=== PATIENT | female | born 1955 | race Caucasian/White ===

== ENCOUNTER 2016-11-08 10:56 | Outpatient (RCR) | payer OTHER ==
--- NOTE | 2016-11-09 15:23 | PT/OT/ST INITIAL EVALUATION ---
Department of Health and Human Services Form Approved Health Care Financing Administration OMB No. [id number] PLAN OF CARE/ASSESSMENT FOR OUTPATIENT REHABILITATION (Complete for Initial Claims Only) 1. PATIENT'S NAME Sharda Horner 2. ACC # [id number] 3. HICN NA 4. PROVIDER NO. [id number] 5. TYPE: PT 6. PRIOR HOSPITALIZATION NA 7. PRIMARY DX Localized edema 8. SECONDARY DX NA 9. ONSET DATE August 2016 10. REFERRAL DATE 10/03/2016 11. SOC. DATE 11/08/2016 12. TIME OF EVAL 10:56 12. REFERRING PHYSICIAN Madina Hemphill DO 13. CHARGES/UNITS Moderate complexity evaluation 33 minutes. Manual therapy 66 minutes 14. G CODES NA 15. PRIOR LEVEL OF FUNCTION; PERTINENT HISTORY (Prior therapy results, reason for referral.) S: Prior to onset of physical therapy at this facility, the patient consented to today's evaluation and treatment. This patient is a 61-year-old female referred to physical therapy for a one-time visit at this facility for measuring and ordering of custom compression garments. The patient has had an exacerbation of edema in bilateral lower extremities, related to trial of statin medication in August 2016. Edema has been chronic and interfering with her ability to function due to the weight of the legs being increased. She has had increased difficulty in walking, transferring. Therapy History: The patient is being seen in an ongoing plan of care at [facility] in [place] where interventions are continuing to be utilized to address her chronic pain as well as the edema. Past medical history: Includes osteoarthritis in multiple joints, depression, and hypertension. She did have a fracture of the left tibia in grade school and injured her left foot when she stepped on a broken bottle and sliced through her shoe and injured her left foot tendon. She has worn an AFO on her left foot and ankle for about 1 year. The patient reports no falls in the last 2 years. Diagnostic tests: The patient has had x-rays of bilateral feet showing degenerative joint conditions. Current medications: Include antidepressants, narcotic pain medication, and antihypertensive. These medications do increase her risk for edema, fatigue, and unsteadiness. The patient has had frequent difficulty with medication and many medication changes have been attempted. Level of function: The patient lives with her who is in good health and able to assist. She also lives with her mentally handicapped daughter, for whom she is responsible for assisting with ADLs. The patient currently has chronic pain in her right hip and is pursuing orthopedic intervention for that, scheduled for next week. Patient's Goal: Her goal for therapy at this facility is to be fitted for custom compression garments. 16. INITIAL ASSESSMENT/SAFETY PRECAUTIONS/MEDICAL COMPLICATIONS (Level of function at start of care. Be specific, use objective measures, list problems.) O: APPEARANCE AND OBSERVATION: The patient is a morbidly obese middle aged female, ambulating with a front-wheeled walker. Ongoing deficits with gait, balance and strength are being pursued with ongoing physical therapy interventions at another facility. PALPATION: The patient demonstrate 1+ pitting edema bilateral lower legs, particularly pretibial area on the right and perimalleolar area on the left. TODAY'S TREATMENT: The patient was treated with complex decongestive therapy and manual lymphatic drainage to bilateral lower extremities. Bilateral lower extremities were measured per flow sheet for costume compression garments. PROGNOSIS: The patient is in need of costume compression garments to address her chronic edema. Due to the conical shape of her legs, she cannot use [id number] compression garments. 17. INITIAL POC: (Specify procedures, modalities, short and bed bug exterminator goals) A: GOALS: The goal, which the patient accomplished on this date; in 1 visit the patient to be measured for custom compression garments for bilateral lower extremities. 18. FREQUENCY Evaluation and treatment only this date. 19. DURATION NA 20. FUNCTIONAL LEVEL (End of claim period) 21. PHYSICIAN SIGNATURE ? ON FILE OR ENTER HERE: 22. DATE: I certify the need for these services furnished under this plan of care and if for partial hospitalization. 23. CERTIFICATION FROM THROUGH FORM [id number]
== END 2016-11-21 12:58 | disposition home or self-care (01) ==
LOC: PT 10:56
PROVIDERS: ATTEND Family Medicine
DX: R60.0 Localized edema (principal)